=== PATIENT | male | born 1990 | race American Indian/Alaskan Native ===

== ENCOUNTER 2017-07-20 09:09 | Emergency (ER) | payer BC ==
[2017-07-20 09:16] VITALS: BMI 39.0
[2017-07-20 09:17] VITALS: BP 141/70; PULSE 77; RESP 17; TEMP 98.9; O2SAT 97
--- NOTE | 2017-07-20 09:34 | ED PDOC ---
HPI: General Adult Time Seen by Provider: 07/20/17 09:18 Chief Complaint (Provider): Bump on head History Per: Patient History/Exam Limitations: no limitations Onset/Duration Of Symptoms: Days (3 months) Have you had recent travel within the past 21 days to any of the following countries: [place], [place], [place] or [place]?: No Current Symptoms Are (Timing): Still Present Additional Complaint(s): Pt. with bump on the back of the head on the right. Is present for 3 months. Got bigger and painful for a few days. No dc, erythema coming from it. No injury. Pt. has been fighting razor bumps/skin infections on the back of the head. Is seeing a rubber down. Is on doxycycline and a cream for it. Has an appt next week for fu. No numbness, tingles, neck pain, sore throat, dyspnea , chest pain, fever. No dizziness, headaches. Past Medical History Reviewed: Nursing Documentation, Vital Signs Vital Signs: Last Vital Signs Temp 98.9 F 07/20/17 09:16 Pulse 77 07/20/17 09:16 Resp 17 07/20/17 09:16 BP 141/70 07/20/17 09:16 Pulse Ox 97 07/20/17 09:16 - Medical History Other PMH: skin scalp infections - Surgical History Surgical History: No Surg Hx - Family History Family History: States: Unknown Family Hx - Living Arrangements Living Arrangements: With Family - Social History Current smoker - smoking cessation education provided: No Alcohol: None Drugs: Denies - Allergies Allergies/Adverse Reactions: Allergies Allergy/AdvReac Type Severity Reaction Status Date / Time No Known Allergies Allergy Verified 12/16/15 08:58 Review of Systems Constitutional: Negative for: Weakness Eyes: Negative for: Vision Change ENT: Negative for: Ear Pain, Nose Congestion, Mouth Pain, Mouth Swelling, Throat Pain Cardiovascular: Negative for: Chest Pain Respiratory: Negative for: Cough, Shortness of Breath Gastrointestinal: Negative for: Nausea, Vomiting, Abdominal Pain Musculoskeletal: Negative for: Neck Pain, Back Pain Neurological: Positive for: Headache. Negative for: Weakness, Numbness Physical Exam - Reviewed Nursing Documentation Reviewed: Yes Vital Signs Reviewed: Yes - Physical Exam Appears: Positive for: Non-toxic, No Acute Distress Head Exam: Positive for: ATRAUMATIC, NORMOCEPHALIC. Negative for: NORMAL INSPECTION (R posterior scalp lower with mild tender lymph node like structure 1cm; no fluctuance or dc; no induration) Skin: Positive for: Normal Color, Warm, DRY Eye Exam: Positive for: EOMI, Normal appearance, PERRL ENT: Negative for: Nasal Congestion, Pharyngeal Erythema, Tonsillar Exudate Neck: Positive for: Normal, Painless ROM Cardiovascular/Chest: Positive for: Regular Rate, Rhythm Respiratory: Positive for: CNT, Normal Breath Sounds Back: Positive for: Normal Inspection. Negative for: L CVA Tenderness, R CVA Tenderness Extremity: Positive for: Normal ROM. Negative for: Tenderness, Pedal Edema Neurologic/Psych: Positive for: Alert, Oriented. Negative for: Motor/Sensory Deficits - ECG O2 Sat by Pulse Oximetry: 97 - Progress ED Course And Treament: 937: Stable. AAOx3. Pain controlled. FU with rubber down. Likely lymph node enlargement from fighting current skin infection. Disposition - Clinical Impression Clinical Impression: Enlarged lymph node - Patient ED Disposition Is Patient to be Admitted: No Counseled Patient/Family Regarding: Diagnosis, Need For Followup - Disposition Referrals: [facility] [Outside] - 07/21/17 Disposition: Routine/Home Disposition Time: 09:38 Condition: STABLE Additional Instructions: Return if not better in 3 days. Ice bump area. Continue antibiotics and see rubber down in 3-4 days without fail. Instructions: Lymphadenopathy (ED)
== END 2017-07-20 10:05 | disposition home or self-care (01) ==
LOC: H.ER 09:09
DX: R59.9 Enlarged lymph nodes, unspecified (principal)

== ENCOUNTER 2018-02-09 16:46 | Emergency (ER) | payer BC ==
[2018-02-09 16:46] VITALS: BMI 39.0
[2018-02-09 18:02] VITALS: BP 132/81; PULSE 80; RESP 16; TEMP 98.3; O2SAT 100
--- NOTE | 2018-02-09 19:31 | ED PDOC ---
HPI: Abdomen Time Seen by Provider: 02/09/18 19:00 Chief Complaint (Nursing): Abdominal Pain Chief Complaint (Provider): abdominal pain (resolved) History Per: Patient History/Exam Limitations: no limitations Past Medical History Vital Signs: Last Vital Signs Temp 98.3 F 02/09/18 17:58 Pulse 80 02/09/18 17:58 Resp 16 02/09/18 17:58 BP 132/81 02/09/18 17:58 Pulse Ox 100 02/09/18 19:34 - Family History Family History: States: Unknown Family Hx - Home Medications Home Medications: Ambulatory Orders Medication Instructions Recorded Ondansetron ODT [Zofran ODT] 4 mg PO PRN PRN #8 odt 02/09/18 - Allergies Allergies/Adverse Reactions: Allergies Allergy/AdvReac Type Severity Reaction Status Date / Time No Known Allergies Allergy Verified 12/16/15 08:58 - ECG O2 Sat by Pulse Oximetry: 100 Disposition - Clinical Impression Clinical Impression: Resolved abdominal pain, Abdominal pain - Patient ED Disposition Is Patient to be Admitted: No Doctor Will See Patient In The: Office Counseled Patient/Family Regarding: Studies Performed, Diagnosis, Need For Followup, Rx Given - Disposition Disposition: Routine/Home Disposition Time: 19:32 Condition: GOOD Prescriptions: Ondansetron ODT [Zofran ODT] 4 mg PO PRN PRN #8 odt PRN Reason: Nausea/Vomiting Instructions: Acute Abdomen (Belly Pain), Adult (DC), Nausea and Vomiting, Adult (DC) Forms: [employer] (Citizen Of [place])
--- NOTE | 2018-02-09 19:37 | ED PDOC ---
HPI: Abdomen Time Seen by Provider: 02/09/18 19:35 Chief Complaint (Nursing): Abdominal Pain Chief Complaint (Provider): abdominal pain (resolved) History Per: Patient History/Exam Limitations: no limitations Onset/Duration Of Symptoms: Days (x1) Current Symptoms Are (Timing): Gone Now Additional Complaint(s): 28 y/o male with a pmhx of bowel obstruction, who presents to the ED complaining of abdominal pain associated with nausea since this morning. Patient states his symptoms began this morning, but resolved when he arrived at the ED. States he was concerned due to his previous history bowel obstructions. Denies vomiting. PMD: Dereck Ngo Past Medical History Reviewed: Historical Data, Nursing Documentation, Vital Signs Vital Signs: Last Vital Signs Temp 98.3 F 02/09/18 17:58 Pulse 80 02/09/18 17:58 Resp 16 02/09/18 17:58 BP 132/81 02/09/18 17:58 Pulse Ox 100 02/09/18 19:40 - Medical History PMH: Obstructive Bowel - Surgical History Other surgeries: Diagnostic abdominal surgery - Family History Family History: States: Unknown Family Hx - Social History Current smoker - smoking cessation education provided: No Alcohol: None Drugs: Denies - Home Medications Home Medications: Ambulatory Orders Medication Instructions Recorded Ondansetron ODT [Zofran ODT] 4 mg PO PRN PRN #8 odt 02/09/18 - Allergies Allergies/Adverse Reactions: Allergies Allergy/AdvReac Type Severity Reaction Status Date / Time No Known Allergies Allergy Verified 12/16/15 08:58 Review of Systems ROS Statement: Except As Marked, All Systems Reviewed And Found Negative Gastrointestinal: Positive for: Nausea, Abdominal Pain. Negative for: Vomiting Physical Exam - Reviewed Nursing Documentation Reviewed: Yes Vital Signs Reviewed: Yes - Physical Exam Appears: Positive for: Non-toxic, No Acute Distress Head Exam: Positive for: ATRAUMATIC Skin: Positive for: Normal Color, Warm Eye Exam: Positive for: Normal appearance Neck: Positive for: Normal Cardiovascular/Chest: Positive for: Regular Rate, Rhythm, Chest Non Tender. Negative for: Murmur Respiratory: Positive for: Normal Breath Sounds. Negative for: Rales, Stridor, Wheezing, Respiratory Distress, Plerual Rub Pulses-Carotid (L): 2+ Pulses-Carotid (R): 2+ Gastrointestinal/Abdominal: Positive for: Normal Exam, Bowel Sounds (all 4 quadrants), Soft. Negative for: Tenderness (all 4 quadrants, Winchester's sign negative, McBurney's sign negative, Jeannette's sign negative), Guarding, Rebound Extremity: Positive for: Normal ROM. Negative for: Pedal Edema Neurologic/Psych: Positive for: Alert, Oriented - ECG O2 Sat by Pulse Oximetry: 100 (RA) Pulse Ox Interpretation: Normal Medical Decision Making Medical Decision Makin Impression: Resolved abdominal pain Plan -Patient's symptoms are now resolved and does not wish to have imaging done. Return precautions provided. Scribe Attestation: Documented by Ken Shields, acting as a scribe for Delano Ojeda PA-C. Provider Scribe Attestation: All medical record entries made by the Scribe were at my direction and personally dictated by me. I have reviewed the chart and agree that the record accurately reflects my personal performance of the history, physical exam, medical decision making, and the department course for this patient. I have also personally directed, reviewed, and agree with the discharge instructions and disposition. Disposition - Clinical Impression Clinical Impression: Resolved abdominal pain, Abdominal pain - Patient ED Disposition Is Patient to be Admitted: No Counseled Patient/Family Regarding: Diagnosis, Need For Followup, Rx Given - Disposition Disposition: Routine/Home Disposition Time: 19:32 Condition: GOOD Prescriptions: Ondansetron ODT [Zofran ODT] 4 mg PO PRN PRN #8 odt PRN Reason: Nausea/Vomiting Instructions: Acute Abdomen (Belly Pain), Adult (DC), Nausea and Vomiting, Adult (DC) Forms: [employer] (Citizen Of [place])
== END 2018-02-09 20:02 | disposition home or self-care (01) ==
LOC: H.ER 16:46
DX: R10.9 Unspecified abdominal pain (principal)

== ENCOUNTER 2019-03-16 19:10 | Emergency (ER) | payer BC ==
[2019-03-16 19:11] VITALS: BMI 39.0
[2019-03-16 20:29] VITALS: BP 126/83; PULSE 79; RESP 16; TEMP 98; O2SAT 97
--- NOTE | 2019-03-16 21:49 | ED PDOC ---
Upper Extremity Pain/Injury Time Seen by Provider: 03/16/19 20:37 Chief Complaint (Nursing): Finger,Hand,&Wrist Chief Complaint (Provider): burn to Right hand History Per: Patient History/Exam Limitations: no limitations Additional Complaint(s): 29 y/o M with no significant PMH who presents with burn to Right hand that occurred this evening. Pt states that he was cooking salmon when the weems began to fall so he grabbed the handle to prevent being burned with hot oil but burned his hand in the process. He is having pain and took 1 Excedrin prior to arrival. He feels better after using ice pack. Past Medical History Reviewed: Historical Data, Nursing Documentation, Vital Signs Vital Signs: Last Vital Signs Temp 98.0 F 03/16/19 20:28 Pulse 79 03/16/19 20:28 Resp 16 03/16/19 20:28 BP 126/83 03/16/19 20:28 Pulse Ox 97 03/16/19 20:28 Primary Care Provider: Procedure,Nonphys - Medical History PMH: Obstructive Bowel - Family History Family History: States: Unknown Family Hx - Home Medications Home Medications: Ambulatory Orders Medication Instructions Recorded Ondansetron ODT [Zofran ODT] 4 mg PO PRN PRN #8 odt 02/09/18 Ibuprofen [Motrin Tab] 600 mg PO Q6 PRN 7 Days tab 03/16/19 - Allergies Allergies/Adverse Reactions: Allergies Allergy/AdvReac Type Severity Reaction Status Date / Time No Known Allergies Allergy Verified 12/16/15 08:58 Review of Systems Musculoskeletal: Positive for: Hand Pain Neurological: Negative for: Numbness Physical Exam - Reviewed Nursing Documentation Reviewed: Yes Vital Signs Reviewed: Yes - Physical Exam Appears: Positive for: Well Extremity: Positive for: Other (palmar aspect of Right hand with mild erythema on medial palm, thumb and 2nd digit. Mild tenderness on palpation. No blisters. ) - ECG O2 Sat by Pulse Oximetry: 97 Medical Decision Making Medical Decision Making: Ice pack Bacitracin applied to palmar aspect of Right hand Ibuprofen 600mg PO x 1 Disposition - Clinical Impression Clinical Impression: First degree burn - Patient ED Disposition Is Patient to be Admitted: No Counseled Patient/Family Regarding: Diagnosis, Rx Given - Disposition Disposition: Routine/Home Disposition Time: 21:45 Condition: STABLE Additional Instructions: Take Tylenol or Ibuprofen for pain. Use antibiotic ointment on burn until pain and redness improve. Use twice daily if blisters form. Prescriptions: Ibuprofen [Motrin Tab] 600 mg PO Q6 PRN 7 Days tab PRN Reason: Pain, Moderate (4-7) Instructions: Skin Gonzalez (DC) Forms: [employer] ([place]), [facility] ED School/Work Excuse Print Language: [place]
== END 2019-03-16 22:52 | disposition home or self-care (01) ==
LOC: H.ER 19:10
DX: T23.101A Burn of first degree of right hand, unspecified site, initial encounter (principal); T79.9XXA Unspecified early complication of trauma, initial encounter; X19.XXXA Contact with other heat and hot substances, initial encounter; Y93.G1 Activity, food preparation and clean up